=== PATIENT | female | born 1970 | race Caucasian/White ===

== ENCOUNTER → 2025-01-30 08:18 | Outpatient (REF) | payer BC, SELFPAY | LOC: HWWDC 08:18 | PROVIDERS: ATTENDING PHYSICIAN Family Medicine | DX: Z12.31 Encounter for screening mammogram for malignant neoplasm of breast (principal) | CPT/HCPCS: 77063; 77067 ==

== ENCOUNTER → 2025-07-10 10:45 | Outpatient (REF) | payer BC, SELFPAY | LOC: EMG 10:45 | PROVIDERS: ATTENDING PHYSICIAN Orthopaedic Surgery Hand Surgery; FAMILY PHYSICIAN Family Medicine | DX: M79.641 Pain in right hand (principal); R20.0 Anesthesia of skin | CPT/HCPCS: 95886; 95909 ==